=== PATIENT | male | born 2000 | race Caucasian/White ===

== ENCOUNTER → 2023-12-28 09:21 | Outpatient (CLI) | payer OTHER, SELFPAY ==
--- NOTE | 2023-12-28 09:24 | DI.MRI.S_ITS ---
PROCEDURE: MR SHOULDER RT WO CON INDICATIONS: DISLOCATION OF UNSP. SHOULDER JOINT RT TECHNIQUE: Noncontrast oblique coronal T2 fast spin echo with fat saturation, oblique sagittal T1 spin echo and T2 fast spin echo with fat saturation, axial T1 spin echo and T2 fast spin echo with fat saturation through the shoulder. COMPARISON: None. FINDINGS: Image quality: Excellent. Rotator cuff: Low-grade articular and bursal surface partial thickness tear involving anterior fibers of distal supraspinatus at its insertion on the humeral head extending to musculotendinous junction. Distal infraspinatus tendinosis is seen. The subscapularis tendon is intact. No full-thickness rotator cuff tendon rupture. Sagittal images demonstrate no significant rotator cuff muscle atrophy. Bones and bursae: Subacute to chronic appearing Hill-Sachs deformity involving posterior lateral humeral head. No Bankart fracture. No acromioclavicular joint degeneration. Type 1 acromion, without an os acromiale. No pathologic subacromial-subdeltoid or subcoracoid bursal fluid is present. Capsule and soft tissues: There is fraying of anterior inferior glenoid labrum with T2 hyperintense signal suggestive of anterior-inferior labral tear and Bankart lesion. The long head of the biceps tendon demonstrates normal location and morphology. The rotator interval appears normal, without fibrosis. The coracohumeral ligament is normal in thickness. IMPRESSION: 1. Subacute to chronic appearing Hill-Sachs deformity involving posterior lateral humeral head. No Bankart fracture. No intra-articular loose bodies. 2. Low-grade articular and bursal surface partial thickness tear involving anterior fibers of distal supraspinatus extending to musculotendinous junction. Distal infraspinatus tendinosis. No full-thickness rotator cuff tendon rupture. 3. Finding is suggestive of anterior-inferior glenoid labral tear consistent with Bankart lesion. Dictated by: Tejas Zelaya M.D. on 12/28/2023 at 19:09 Approved by: Tejas Zelaya M.D. on 12/28/2023 at 19:13
== END ==
DX: M75.111 Incomplete rotator cuff tear or rupture of right shoulder, not specified as traumatic (principal); S43.006A Unspecified dislocation of unspecified shoulder joint, initial encounter
CPT/HCPCS: 73221